=== PATIENT | male | born 1990 | race Caucasian/White ===

== ENCOUNTER 2023-09-03 17:19 | Inpatient (IN) | payer OTHER ==
[~2023-09-03] VITALS: Ht 177.8 cm; Wt 83.5 kg
[2023-09-03] MEDS: SODIUM CHLORIDE 0.9% 1,000 ML IV ONE ×2 (18:40→19:52)
[2023-09-03] MEDS: KETOROLAC 30MG/ML VIAL IV ONE (18:41)
[2023-09-03 19:03] LABS: HEMATOCRIT. 42.7 % (42.0-52.0); HEMOGLOBIN. 14.2 g/dL (14.0-18.0); MEAN CORPUSCULAR HEMOGLOBIN 28.2 pg (28.0-32.0); MEAN CORPUSCULAR HGB CONC 33.3 g/dL (31.0-37.0); MEAN CORPUSCULAR VOLUME 84.6 fL (80.0-94.0); MEAN PLATELET VOLUME 9.6 fl (7.4-10.4); PLATELET 150 x1000/uL (130-400); RED BLOOD CELL COUNT 5.05 mill/uL (4.7-6.1); RED CELL DISTRIBUTION WIDTH 14.2 % (11.6-14.6); WHITE BLOOD COUNT 13.8 x1000/uL (4.5-11.0)
[2023-09-03 19:06] LABS: DIFFERENTIAL COMMENT 1
[2023-09-03 19:09] LABS: CHLORIDE 96 mEq/L (98-107); POTASSIUM 3.7 mEq/L (3.5-5.1); SODIUM 132 mEq/L (136-145)
[2023-09-03 19:10] LABS: CALCIUM 8.6 mg/dL (8.7-10.4); CARBON DIOXIDE 28 mEq/L (21-32)
[2023-09-03 19:13] LABS: INR 1.1
[2023-09-03 19:15] LABS: CREATININE 0.8 mg/dL (0.6-1.3); GLUCOSE 110 mg/dL (70-105); UREA NITROGEN BLOOD 8 mg/dL (9-23)
[2023-09-03 19:17] LABS: ALANINE AMINOTRANSFERASE 749 IU/L (10-49); ALBUMIN 3.9 g/dL (3.2-4.8); ASPARTATE AMINOTRANSFERASE 418 IU/L (<34); BILIRUBIN TOTAL 3.7 mg/dL (0.1-1.0); PROTEIN TOTAL 7.9 g/dL (6.0-8.3)
[2023-09-03 19:18] LABS: LACTIC ACID 2.3 mmol/L (0.4-2.0)
[2023-09-03 19:24] LABS: CLARITY URINE CLOUDY (CLEAR); COLOR URINE DARK YELLOW (YELLOW); GLUCOSE URINE TRACE (NEGATIVE); KETONES URINE 2+ (NEGATIVE); LEUKOCYTE ESTERASE URINE 1+ (NEGATIVE); NITRITE URINE POSITIVE (NEGATIVE); OCCULT BLOOD URINE TRACE (NEGATIVE); PH URINE 5.5 (4.5-8.0); PROTEIN URINE 2+ (NEGATIVE); SPECIFIC GRAVITY URINE 1.038 (1.005-1.030)
[2023-09-03 19:28] LABS: PLATELET ESTIMATE NORMAL
[2023-09-03 19:36] LABS: BACTERIA URINE 1+; RBC URINE 0-2 /hpf (0-2); SQUAMOUS EPITHELIAL CELL URINE 1+ /lpf (RARE/1+)
[2023-09-03] MEDS: PIPERACILLIN/TAZO 3.375G/50ML 50 ML IV STA (19:46)
[2023-09-03] MEDS: ONDANSETRON HCL 4MG/2ML INJ IV ONE (21:09)
[2023-09-03] MEDS: MORPHINE SULFATE 4 MG/ML INJ (FOR IV/IM USE) IV ONE (21:09)
[2023-09-04 12:15] VITALS: BP 141/77; PULSE 109; RESP 18; TEMP 103.7
[2023-09-04] MEDS ORDERED: DOCUSATE SODIUM 100MG CAPSULE PO PRN (13:00)
[2023-09-04] MEDS ORDERED: ONDANSETRON HCL 4MG/2ML INJ IV PRN (13:00)
[2023-09-04] MEDS: SODIUM CHLORIDE 0.9% 1,000 ML IV SCH (13:00)
[2023-09-04] MEDS ORDERED: LORAZEPAM 2MG/ML INJ IV PRN (13:00)
[2023-09-04] MEDS ORDERED: CLONIDINE 0.1MG TABLET PO PRN (13:00)
[2023-09-04] MEDS ORDERED: IPRATROPIUM/ALBUTEROL 0.5-3(2.5)MG/3ML NEB HHN PRN (13:00)
[2023-09-04] MEDS ORDERED: CEFTRIAXONE 1GM/50ML 50 ML IV SCH (15:00)
[2023-09-04] MEDS: CEFTRIAXONE 2GM/50ML 50 ML IV SCH (17:00)
[2023-09-04 17:04] LABS: CHLORIDE 103 mEq/L (98-107); POTASSIUM 3.9 mEq/L (3.5-5.1); SODIUM 137 mEq/L (136-145)
[2023-09-04 17:06] LABS: CALCIUM 7.9 mg/dL (8.7-10.4); CARBON DIOXIDE 26 mEq/L (21-32)
[2023-09-04 17:11] LABS: CREATININE 0.7 mg/dL (0.6-1.3); GLUCOSE 128 mg/dL (70-105); UREA NITROGEN BLOOD 8 mg/dL (9-23)
[2023-09-04 17:12] LABS: ALANINE AMINOTRANSFERASE 530 IU/L (10-49); ASPARTATE AMINOTRANSFERASE 296 IU/L (<34); LACTATE DEHYDROGENASE 511 IU/L (120-246)
[2023-09-04 17:13] LABS: ALBUMIN 3.2 g/dL (3.2-4.8); BILIRUBIN TOTAL 3.2 mg/dL (0.1-1.0); CREATINE KINASE 26 IU/L (46-171)
[2023-09-04 17:15] LABS: HEMATOCRIT. 36.1 % (42.0-52.0); HEMOGLOBIN. 12.2 g/dL (14.0-18.0); MEAN CORPUSCULAR HEMOGLOBIN 28.7 pg (28.0-32.0); MEAN CORPUSCULAR HGB CONC 33.8 g/dL (31.0-37.0); MEAN CORPUSCULAR VOLUME 84.8 fL (80.0-94.0); MEAN PLATELET VOLUME 9.8 fl (7.4-10.4); PLATELET 155 x1000/uL (130-400); RED BLOOD CELL COUNT 4.25 mill/uL (4.7-6.1); RED CELL DISTRIBUTION WIDTH 14.4 % (11.6-14.6); WHITE BLOOD COUNT 11.8 x1000/uL (4.5-11.0)
[2023-09-04 17:18] LABS: DIFFERENTIAL COMMENT 1
[2023-09-04] MEDS: LEVETIRACETAM 500MG PREMIX 100 ML IV SCH (18:31)
[2023-09-04 19:19] LABS: ATYPICAL LYMPHOCYTES 2; PLATELET ESTIMATE NORMAL
[2023-09-04 20:00] VITALS: BP 129/67; PULSE 112; RESP 20; TEMP 103.1
[2023-09-04] MEDS: DOXYCYCLINE 100MG/100ML 100 ML IV SCH (20:02)
[2023-09-04] MEDS: ACETAMINOPHEN 325MG TABLET PO PRN (20:08)
[2023-09-04 20:22] LABS: ERYTHROCYTE SEDIMENTATION RATE 6 mm/hr (0-15)
[2023-09-05] VITALS: BP 114/69; PULSE 105; RESP 20; TEMP 100.4
[2023-09-05 04:00] VITALS: BP 105/58; PULSE 108; RESP 20; TEMP 101.5
[2023-09-05 07:04] LABS: HEMOGLOBIN. 11.7 g/dL (14.0-18.0); MEAN CORPUSCULAR HEMOGLOBIN 28.2 pg (28.0-32.0); MEAN CORPUSCULAR HGB CONC 33.5 g/dL (31.0-37.0); MEAN CORPUSCULAR VOLUME 84.1 fL (80.0-94.0); MEAN PLATELET VOLUME 9.8 fl (7.4-10.4); PLATELET 160 x1000/uL (130-400); RED BLOOD CELL COUNT 4.17 mill/uL (4.7-6.1); RED CELL DISTRIBUTION WIDTH 14.9 % (11.6-14.6); WHITE BLOOD COUNT 12.7 x1000/uL (4.5-11.0)
[2023-09-05 07:22] LABS: DIFFERENTIAL COMMENT 1
[2023-09-05 07:48] LABS: CARBON DIOXIDE 25 mEq/L (21-32); CHLORIDE 103 mEq/L (98-107); POTASSIUM 3.7 mEq/L (3.5-5.1); SODIUM 137 mEq/L (136-145)
[2023-09-05 07:49] LABS: CALCIUM 7.8 mg/dL (8.7-10.4)
[2023-09-05 07:52] LABS: CREATININE 0.6 mg/dL (0.6-1.3)
[2023-09-05 07:53] LABS: GLUCOSE 93 mg/dL (70-105)
[2023-09-05 07:54] LABS: UREA NITROGEN BLOOD 8 mg/dL (9-23)
[2023-09-05 08:00] VITALS: BP 120/69; PULSE 88; RESP 18; TEMP 96.9
[2023-09-05 08:33] LABS: HEPATITIS B SURFACE ANTIGEN NEGATIVE (Negative)
[2023-09-05 08:53] LABS: HEPATITIS A AB IGM NEGATIVE (Negative)
[2023-09-05 08:54] LABS: HEPATITIS B CORE AB IGM NEGATIVE (Negative)
[2023-09-05 08:55] LABS: HEPATITIS C AB NON REACTIVE (Neg) (Negative)
[2023-09-05 12:00] VITALS: BP 129/79; PULSE 101; RESP 22; TEMP 97.7
[2023-09-05 12:49] LABS: ALANINE AMINOTRANSFERASE 526 IU/L (10-49)
[2023-09-05 12:50] LABS: ALBUMIN 3.2 g/dL (3.2-4.8); ASPARTATE AMINOTRANSFERASE 309 IU/L (<34); BILIRUBIN DIRECT 2.2 mg/dL (<=3.0); BILIRUBIN TOTAL 3.1 mg/dL (0.1-1.0); CREATINE KINASE 26 IU/L (46-171); PROTEIN TOTAL 6.4 g/dL (6.0-8.3)
[2023-09-05 12:52] LABS: T4 FREE 1.09 ng/dL (0.89-1.76); THYROID STIMULATING HORMONE 0.79 uIU/mL (0.55-4.78)
[2023-09-05] MEDS: ACETAMINOPHEN 325MG TABLET PO PRN (15:02)
[2023-09-05] MEDS ORDERED: ACET-2708 PO (15:13)
[2023-09-05] MEDS ORDERED: DIVA-75 MT (15:13)
[2023-09-05] MEDS ORDERED: *PATIENT'S OWN MEDICATION STORAGE XX SCH (15:30)
[2023-09-05 16:00] VITALS: BP 126/77; PULSE 102; RESP 21; TEMP 101.8
[2023-09-05 16:19] LABS: PLATELET ESTIMATE NORMAL
[2023-09-05 20:00] VITALS: BP 132/78; PULSE 105; RESP 20; TEMP 102
[2023-09-05] MEDS ORDERED: IOHEXOL-300 100 ML BOTTLE ONE (23:25)
[2023-09-06] VITALS: BP 135/71; PULSE 109; TEMP 102.6
[2023-09-06] MEDS: ACETAMINOPHEN 325MG TABLET PO NR (00:20)
[2023-09-06 04:00] VITALS: BP 124/73; PULSE 95; RESP 20; TEMP 100.6
[2023-09-06 06:28] LABS: HEMATOCRIT. 33.4 % (42.0-52.0); HEMOGLOBIN. 11.4 g/dL (14.0-18.0); MEAN CORPUSCULAR HEMOGLOBIN 28.4 pg (28.0-32.0); MEAN CORPUSCULAR HGB CONC 34.1 g/dL (31.0-37.0); MEAN CORPUSCULAR VOLUME 83.2 fL (80.0-94.0); MEAN PLATELET VOLUME 9.6 fl (7.4-10.4); PLATELET 155 x1000/uL (130-400); RED BLOOD CELL COUNT 4.02 mill/uL (4.7-6.1); WHITE BLOOD COUNT 11.3 x1000/uL (4.5-11.0)
[2023-09-06 06:42] LABS: CHLORIDE 103 mEq/L (98-107); POTASSIUM 3.9 mEq/L (3.5-5.1); SODIUM 137 mEq/L (136-145)
[2023-09-06 06:43] LABS: CARBON DIOXIDE 25 mEq/L (21-32)
[2023-09-06 06:48] LABS: CREATININE 0.6 mg/dL (0.6-1.3)
[2023-09-06 06:49] LABS: GLUCOSE 98 mg/dL (70-105); UREA NITROGEN BLOOD 7 mg/dL (9-23)
[2023-09-06 06:50] LABS: ALANINE AMINOTRANSFERASE 467 IU/L (10-49); ALBUMIN 3.1 g/dL (3.2-4.8); ASPARTATE AMINOTRANSFERASE 290 IU/L (<34)
[2023-09-06 06:51] LABS: PROTEIN TOTAL 6.5 g/dL (6.0-8.3)
[2023-09-06 07:10] LABS: DIFFERENTIAL COMMENT 1
[2023-09-06 08:00] VITALS: BP 131/79; PULSE 102; RESP 21; TEMP 102.4
[2023-09-06 12:00] VITALS: BP 134/70; PULSE 103; RESP 21; TEMP 100.4
[2023-09-06 14:02] LABS: ATYPICAL LYMPHOCYTES 1
[2023-09-06 14:03] LABS: ANISOCYTOSIS 1+; PLATELET ESTIMATE NORMAL
[2023-09-06 16:00] VITALS: BP 130/70; PULSE 100; RESP 21; TEMP 98.8
[2023-09-06 20:00] VITALS: BP 132/77; PULSE 114; RESP 20; TEMP 101.8
[2023-09-07] VITALS: BP 123/74; PULSE 107; RESP 20; TEMP 100.9
[2023-09-07 04:00] VITALS: BP 123/70; PULSE 103; RESP 20; TEMP 98.1
[2023-09-07 07:24] LABS: CHLORIDE 102 mEq/L (98-107); POTASSIUM 3.8 mEq/L (3.5-5.1); SODIUM 136 mEq/L (136-145)
[2023-09-07 07:25] LABS: CALCIUM 8.2 mg/dL (8.7-10.4); CARBON DIOXIDE 26 mEq/L (21-32)
[2023-09-07 07:30] LABS: CREATININE 0.6 mg/dL (0.6-1.3); GLUCOSE 90 mg/dL (70-105); UREA NITROGEN BLOOD 7 mg/dL (9-23)
[2023-09-07 07:32] LABS: ALANINE AMINOTRANSFERASE 434 IU/L (10-49); ALBUMIN 3.3 g/dL (3.2-4.8); ASPARTATE AMINOTRANSFERASE 304 IU/L (<34); BILIRUBIN TOTAL 2.9 mg/dL (0.1-1.0); PROTEIN TOTAL 6.7 g/dL (6.0-8.3)
[2023-09-07 07:48] LABS: HEMATOCRIT. 32.9 % (42.0-52.0); HEMOGLOBIN. 10.9 g/dL (14.0-18.0); MEAN CORPUSCULAR HEMOGLOBIN 28.9 pg (28.0-32.0); MEAN CORPUSCULAR HGB CONC 33.1 g/dL (31.0-37.0); MEAN CORPUSCULAR VOLUME 87.2 fL (80.0-94.0); MEAN PLATELET VOLUME 9.7 fl (7.4-10.4); PLATELET 200 x1000/uL (130-400); RED BLOOD CELL COUNT 3.78 mill/uL (4.7-6.1); RED CELL DISTRIBUTION WIDTH 15.3 % (11.6-14.6); WHITE BLOOD COUNT 11.9 x1000/uL (4.5-11.0)
[2023-09-07 07:58] LABS: DIFFERENTIAL COMMENT 1
[2023-09-07 08:00] VITALS: BP 123/73; PULSE 98; RESP 20; TEMP 98.8
[2023-09-07] MEDS: DILTIAZEM HCL 30MG TABLET PO SCH (08:45)
[2023-09-07 12:00] VITALS: BP 125/78; PULSE 101; RESP 20; TEMP 98.8
[2023-09-07 16:00] VITALS: BP 128/78; PULSE 102; RESP 20; TEMP 99.9
[2023-09-07 16:52] LABS: PLATELET ESTIMATE NORMAL
[2023-09-07] MEDS: IBUPROFEN 400MG TABLET PO PRN (18:29)
[2023-09-07 20:00] VITALS: BP 99/63; PULSE 95; RESP 18; TEMP 97.7
[2023-09-08] VITALS: BP 109/59; PULSE 77; RESP 18; TEMP 97.5
[2023-09-08 04:00] VITALS: BP 118/65; PULSE 107; RESP 18; TEMP 98.6
[2023-09-08 06:13] LABS: HEMATOCRIT. 33.9 % (42.0-52.0); HEMOGLOBIN. 11.5 g/dL (14.0-18.0); MEAN CORPUSCULAR HEMOGLOBIN 28.5 pg (28.0-32.0); PLATELET 213 x1000/uL (130-400); RED BLOOD CELL COUNT 4.04 mill/uL (4.7-6.1); RED CELL DISTRIBUTION WIDTH 15.4 % (11.6-14.6); WHITE BLOOD COUNT 9.7 x1000/uL (4.5-11.0)
[2023-09-08 06:15] LABS: DIFFERENTIAL COMMENT 1
[2023-09-08 06:23] LABS: CHLORIDE 104 mEq/L (98-107); SODIUM 137 mEq/L (136-145)
[2023-09-08 06:24] LABS: CALCIUM 8.1 mg/dL (8.7-10.4); CARBON DIOXIDE 25 mEq/L (21-32)
[2023-09-08 06:29] LABS: CREATININE 0.5 mg/dL (0.6-1.3); GLUCOSE 90 mg/dL (70-105); UREA NITROGEN BLOOD 7 mg/dL (9-23)
[2023-09-08 06:31] LABS: ALANINE AMINOTRANSFERASE 399 IU/L (10-49); ALANINE AMINOTRANSFERASE 409 IU/L (10-49); ALBUMIN 3.3 g/dL (3.2-4.8); ASPARTATE AMINOTRANSFERASE 274 IU/L (<34)
[2023-09-08 06:32] LABS: ALBUMIN 3.3 g/dL (3.2-4.8); ASPARTATE AMINOTRANSFERASE 281 IU/L (<34); BILIRUBIN DIRECT 1.4 mg/dL (<=3.0); BILIRUBIN TOTAL 2.2 mg/dL (0.1-1.0); BILIRUBIN TOTAL 2.3 mg/dL (0.1-1.0); PROTEIN TOTAL 6.7 g/dL (6.0-8.3); PROTEIN TOTAL 6.9 g/dL (6.0-8.3)
[2023-09-08 08:00] VITALS: BP 115/73; PULSE 94; RESP 18; TEMP 100.4
[2023-09-08 12:00] VITALS: BP 116/62; PULSE 96; RESP 20; TEMP 99.1
[2023-09-08] MEDS ORDERED: AMOX1TAB16 MT (13:18)
[2023-09-08] MEDS ORDERED: DOXY100T2 MT (13:18)
[2023-09-08 14:21] LABS: ATYPICAL LYMPHOCYTES 1
[2023-09-08 14:23] LABS: ANISOCYTOSIS 1+; PLATELET ESTIMATE NORMAL
[2023-09-08 16:00] VITALS: BP 123/75; PULSE 101; RESP 20; TEMP 98.1
[2023-09-08 19:06] LABS: *HIV-1 RNA BY PCR <20 copies/mL (.)
[2023-09-08 19:41] VITALS: BP 123/75; PULSE 101; TEMP 98.1; O2SAT 97
[2023-09-08] MEDS ORDERED: LEVETIRACETAM 500MG TABLET PO SCH (21:00)
[2023-09-09] MEDS ORDERED: DOXYCYCLINE 100MG/100ML 100 ML IV SCH (06:00)
[2023-09-09] MEDS ORDERED: CEFTRIAXONE 1GM/50ML 50 ML IV SCH (17:00)
== END 2023-09-08 20:07 | disposition home or self-care (01) | DRG 153 ==
LOC: ER 17:19 → 6EST 21:14 → EDBEDREQ 21:33
PROVIDERS: ADMIT Internal Medicine; ATTEND Internal Medicine
DX: J03.90 Acute tonsillitis, unspecified (principal); N39.0 Urinary tract infection, site not specified; E87.1 Hypo-osmolality and hyponatremia; E87.20 Acidosis, unspecified; K75.9 Inflammatory liver disease, unspecified; E87.8 Other disorders of electrolyte and fluid balance, not elsewhere classified; K76.0 Fatty (change of) liver, not elsewhere classified; R16.2 Hepatomegaly with splenomegaly, not elsewhere classified; Z20.822 Contact with and (suspected) exposure to COVID-19; D72.820 Lymphocytosis (symptomatic); D69.6 Thrombocytopenia, unspecified; E11.9 Type 2 diabetes mellitus without complications; R74.01 Elevation of levels of liver transaminase levels; E80.6 Other disorders of bilirubin metabolism; G40.909 Epilepsy, unspecified, not intractable, without status epilepticus; Z79.899 Other long term (current) drug therapy
CPT/HCPCS: 36415; 70491; 71045; 71250; 74176; 74181; 76700; 80048; 80053; 80076; 80165; 80307; 81003; 82248; 82550; 83036; 83605; 83615; 84145; 84439; 84443; 85025; 85044; 85651; 86592; 86705; 86709; 86790; 87207; 87340; 87426; 87536; 99291; J0696; J1885; J1953; J2270; J2405; J2543; J3490; J7030; Q9967